=== PATIENT | male | born 1990 | race Caucasian/White ===

== ENCOUNTER 2018-05-08 14:24 | Emergency (ER) | payer SELFPAY ==
[~2018-05-08] VITALS: Ht 175.3 cm; Wt 68.0 kg
[2018-05-08] MEDS ORDERED: DIPH,PERTUSS(ACELL),TET VAC/PF 0.5 ML IM-VACC ONE ×2 (16:21→16:30)
[2018-05-08 16:53] VITALS: BP 127/89
[2018-05-08] MEDS ORDERED: CEFAZOLIN 1,000 MG ONE (16:58)
[2018-05-08] MEDS ORDERED: CEFAZOLIN 1,000 MG IM ONE (17:00)
[2018-05-08] MEDS ORDERED: BACITRACIN ZINC OINT 500U/GM, 0.9 GM ONE (18:05)
== END 2018-05-08 18:12 | disposition home or self-care (01) ==
LOC: ED 17:20
DX: S31.31XA Laceration without foreign body of scrotum and testes, initial encounter (principal); X58.XXXA Exposure to other specified factors, initial encounter; Y93.89 Activity, other specified; Y92.89 Other specified places as the place of occurrence of the external cause; Y99.8 Other external cause status
CPT/HCPCS: 76870; 90471; 90715; 96372; 99284; J0690